=== PATIENT | male | born 1995 | race African-American/Black ===

== ENCOUNTER 2021-06-08 07:06 | Emergency (ER) | payer OTHER ==
[~2021-06-08] VITALS: Ht 188 cm; Wt 90.9 kg
[2021-06-08 07:23] VITALS: BP 126/70
[2021-06-08] MEDS ORDERED: PERTUSS(ACELL),DIPH,TET VAC/PF 0.5 ML SYRINGE IM. ONE (08:00)
== END 2021-06-08 08:17 | disposition home or self-care (01) ==
LOC: EMS 07:06
DX: B07.0 Plantar wart (principal)
CPT/HCPCS: 90471; 90715; 99283

== ENCOUNTER 2022-11-28 06:32 | Inpatient (IN) | payer MEDICAID, OTHER ==
[~2022-11-28] VITALS: Ht 200.7 cm; Wt 95.2 kg
[2022-11-28 08:29] LABS: BASOPHILS % (AUTO) 0.3 % (0.0-2.0); EOSINOPHILS % (AUTO) 0 % (1.0-6.0); HEMATOCRIT 39.1 % (41-53); HEMOGLOBIN 12.9 g/dL (13.5-17.5); LYMPHOCYTES # (AUTO) 0.7 K/uL (1.0-4.8); LYMPHOCYTES % (AUTO) 7.6 % (22.0-44.0); MEAN CORPUSCULAR HEMOGLOBIN 29.1 pg (26.0-34.0); MEAN CORPUSCULAR VOLUME 88 fL (80-100); MONOCYTES # (AUTO) 0.5 K/uL (0.1-1.0); MONOCYTES % (AUTO) 5.4 % (2.0-9.0); NEUTROPHILS # (AUTO) 7.7 K/uL (1.8-7.7); PLATELET COUNT (AUTO) 235 K/uL (150-450); RED BLOOD CELL COUNT(AUTO) 4.44 MIL/uL (4.50-5.90); RED CELL DISTRIBUTION WIDTH 14.1 % (11.5-14.5); WHITE BLOOD COUNT (AUTO) 8.9 K/uL (4.5-11.0)
[2022-11-28 08:30] LABS: NEUTROPHILS % (AUTO) 86.7 % (40.0-70.0)
[2022-11-28 08:39] LABS: ANION GAP 11 mmol/L (8-16); CALCIUM, TOTAL 9.4 mg/dL (8.8-10.5); CARBON DIOXIDE 26 mmol/L (22-29); CHLORIDE 101 mmol/L (98-107); CREATININE 1.26 mg/dL (0.60-1.30); GLOMERULAR FILTR. RATE CALC > 60 mL/min (>60); GLUCOSE,RANDOM 113 mg/dL (70-110); POTASSIUM 3.9 mmol/L (3.5-5.1); SODIUM SERUM 138 mmol/L (136-145); UREA NITROGEN, BLOOD 16 mg/dL (7-18)
[2022-11-28 08:44] LABS: ALANINE AMINOTRANSFERASE 21 U/L (12-78); ALBUMIN 4.2 g/dL (3.4-5.0); ALKALINE PHOSPHATASE 60 U/L (46-116); ASPARTATE AMINOTRANSFERASE 37 U/L (15-37); BILIRUBIN,TOTAL 0.3 mg/dL (0.1-1.0)
[2022-11-28 08:53] LABS: ALCOHOL, BLOOD (SERUM) < 3 mg/dL (0-10)
[2022-11-28] MEDS ORDERED: ZOLPIDEM TARTRATE 10 MG TABLET PO PRN (09:30)
[2022-11-28 09:43] LABS: COVID AG,FIA SOURCE NASAL SWAB
[2022-11-28 10:00] LABS: SARS-COV2 (COVID) ANTIGEN,FIA Negative (Negative)
[2022-11-28] MEDS: LORazepam 2 MG TABLET PO PRN (10:38)
[2022-11-28] MEDS: HALOPERIDOL 5 MG TABLET PO PRN (10:38)
[2022-11-28 11:56] LABS: APPEARANCE,URINE CLEAR (CLEAR); BILIRUBIN,URINE NEGATIVE (NEGATIVE); COLOR,URINE LIGHT YELLOW (YELLOW); GLUCOSE, URINE (UA) NEGATIVE (NEGATIVE); KETONES,URINE NEGATIVE (NEGATIVE); LEUKOCYTE ESTERASE ,URINE NEGATIVE (NEGATIVE); NITRATE,URINE NEGATIVE (NEGATIVE); OCCULT BLOOD,URINE MODERATE (NEGATIVE); PROTEIN,URINE 30-70 mg/dL (NEGATIVE); SPECIFIC GRAVITIY, URINE 1.027 (1.003-1.030); UROBILINOGEN,URINE <=1.0 mg/dL (<=1.0)
[2022-11-28 12:06] LABS: ALCOHOL, URINE DRUG SCREEN NEGATIVE (NEGATIVE); AMPHET/METH SCREEN,URINE POSITIVE (NEGATIVE); BARBITURATE SCREEN, URINE NEGATIVE (NEGATIVE); BENZODIAZEPINES SCREEN,URINE NEGATIVE (NEGATIVE); CANNABINOID SCREEN,URINE POSITIVE (NEGATIVE); COCAINE SCREEN,URINE NEGATIVE (NEGATIVE); METHADONE SCREEN, URINE NEGATIVE (NEGATIVE); OPIATE SCREEN,URINE NEGATIVE (NEGATIVE); PHENCYCLIDINE SCREEN,URINE NEGATIVE (NEGATIVE)
[2022-11-28 12:09] LABS: BACTERIA,URINE None Seen /HPF (None Seen); SQUAMOUS EPITHELIAL CELL,UR Few /LPF (None Seen); WBC,URINE None Seen /HPF (0-5)
[2022-11-28 15:18] VITALS: BP 144/91; PULSE 104; RESP 18; TEMP 98.9; O2SAT 99
[2022-11-28 20:00] VITALS: BP 148/93; PULSE 97; RESP 18; TEMP 98.1; O2SAT 98
[2022-11-28] MEDS ORDERED: PETROLATUM,WHITE 28 GM JELLY TP PRN (21:15)
[2022-11-28] MEDS ORDERED: DOCUSATE SODIUM 100 MG CAPSULE PO PRN (21:15)
[2022-11-28] MEDS ORDERED: LOPERAMIDE HCL 2 MG CAPSULE PO PRN (21:15)
[2022-11-28] MEDS ORDERED: GuaiFENesin/D-METHORPHAN [SUGAR-FREE] 200-20MG/10 ML SYRUP UDCUP PO PRN (21:15)
[2022-11-28] MEDS ORDERED: CloNIDine HCL 0.1 MG TABLET PO PRN (21:15)
[2022-11-28] MEDS ORDERED: ACETAMINOPHEN 325 MG TABLET PO PRN (21:15)
[2022-11-28] MEDS ORDERED: IBUPROFEN 400 MG TABLET PO PRN (21:15)
[2022-11-28] MEDS ORDERED: ALBUTEROL SULFATE HFA 90 MCG/PUFF 8 GM INHALER IH PRN (21:15)
[2022-11-28] MEDS ORDERED: MAGNESIUM HYDROXIDE SUSPENSION 30 ML UDCUP PO PRN (21:15)
[2022-11-28] MEDS ORDERED: ONDANSETRON HCL 4 MG TABLET PO PRN (21:15)
[2022-11-28] MEDS: NICOTINE 14 MG/24 HOUR PATCH TD PRN (22:01)
[2022-11-29] MEDS: MAG HYDROX/AL HYDROX/SIMETH ES 30 ML SUSPENSION UDCUP PO PRN (00:51)
[2022-11-29 07:28] LABS: BASOPHILS % (AUTO) 0.3 % (0.0-2.0); EOSINOPHILS % (AUTO) 0 % (1.0-6.0); HEMATOCRIT 40.5 % (41-53); HEMOGLOBIN 13.8 g/dL (13.5-17.5); LYMPHOCYTES # (AUTO) 0.7 K/uL (1.0-4.8); LYMPHOCYTES % (AUTO) 8.7 % (22.0-44.0); MEAN CORPUSCULAR HEMOGLOBIN 29.9 pg (26.0-34.0); MEAN CORPUSCULAR VOLUME 88 fL (80-100); MONOCYTES # (AUTO) 0.4 K/uL (0.1-1.0); MONOCYTES % (AUTO) 5.2 % (2.0-9.0); NEUTROPHILS # (AUTO) 6.9 K/uL (1.8-7.7); PLATELET COUNT (AUTO) 235 K/uL (150-450); RED BLOOD CELL COUNT(AUTO) 4.61 MIL/uL (4.50-5.90); RED CELL DISTRIBUTION WIDTH 13.8 % (11.5-14.5)
[2022-11-29 07:29] LABS: NEUTROPHILS % (AUTO) 85.8 % (40.0-70.0)
[2022-11-29 07:36] LABS: HEMOGLOBIN A1C 5.4 % (3.8-5.6)
[2022-11-29 07:49] LABS: ALANINE AMINOTRANSFERASE 40 U/L (12-78); ALBUMIN 4.6 g/dL (3.4-5.0); ALKALINE PHOSPHATASE 68 U/L (46-116); ANION GAP 2 mmol/L (8-16); ASPARTATE AMINOTRANSFERASE 153 U/L (15-37); BILIRUBIN,TOTAL 0.6 mg/dL (0.1-1.0); CALCIUM, TOTAL 9.6 mg/dL (8.8-10.5); CARBON DIOXIDE 31 mmol/L (22-29); CHLORIDE 101 mmol/L (98-107); CREATININE 1.14 mg/dL (0.60-1.30); GLOMERULAR FILTR. RATE CALC > 60 mL/min (>60); GLUCOSE,RANDOM 114 mg/dL (70-110); POTASSIUM 3.5 mmol/L (3.5-5.1); SODIUM SERUM 134 mmol/L (136-145); THYROID STIMULATING HORMONE 2.56 uIU/mL (0.36-3.74); TOTAL PROTEIN, SERUM 8.7 g/dL (6.4-8.2); UREA NITROGEN, BLOOD 18 mg/dL (7-18)
[2022-11-29 07:55] LABS: RBC MORPHOLOGY COMMENT NORMAL RBC MORPH
[2022-11-29 09:08] LABS: CHOL/HDL RATIO 1.8 (4.2-7.3); CHOLESTEROL 130 mg/dL (131-200); HDL CHOLESTEROL 71 mg/dL (40-60); LDL CHOL (CALC.) 53 mg/dL (0-130); TRIGLYCERIDES 32 mg/dL (15-150)
[2022-11-29] MEDS: LORazepam 2 MG TABLET PO PRN ×2 (09:36→13:40)
[2022-11-29] MEDS: NICOTINE 14 MG/24 HOUR PATCH TD PRN (09:36)
[2022-11-29] MEDS: HALOPERIDOL 5 MG TABLET PO PRN ×2 (09:36→13:40)
[2022-11-29 10:24] VITALS: BP 145/85; PULSE 96; RESP 18; TEMP 97.4; O2SAT 98
[2022-11-29] MEDS: RisperiDONE 2 MG TABLET PO SCH (16:51)
[2022-11-29 20:00] VITALS: TEMP 98
[2022-11-30] MEDS: HALOPERIDOL 5 MG TABLET PO PRN ×3 (00:09→22:24)
[2022-11-30] MEDS: LORazepam 2 MG TABLET PO PRN ×3 (00:09→22:24)
[2022-11-30 00:44] VITALS: BP 133/90; PULSE 90; RESP 18; TEMP 96.3
[2022-11-30] MEDS: NICOTINE 14 MG/24 HOUR PATCH TD PRN (08:17)
[2022-11-30] MEDS: RisperiDONE 2 MG TABLET PO SCH ×2 (08:17→16:26)
[2022-11-30 11:45] VITALS: BP 118/86; PULSE 110; RESP 19; TEMP 97.8; O2SAT 99
[2022-11-30] MEDS: MAG HYDROX/AL HYDROX/SIMETH ES 30 ML SUSPENSION UDCUP PO PRN (18:04)
[2022-11-30 21:05] VITALS: RESP 19
[2022-12-01] MEDS: RisperiDONE 2 MG TABLET PO SCH (08:32)
[2022-12-01] MEDS: HALOPERIDOL 5 MG TABLET PO PRN (09:19)
[2022-12-01] MEDS: LORazepam 2 MG TABLET PO PRN (09:19)
[2022-12-01] MEDS: NICOTINE 14 MG/24 HOUR PATCH TD PRN (09:23)
[2022-12-01 11:53] VITALS: BP 120/77; PULSE 99; RESP 18; TEMP 96.7; O2SAT 99
[2022-12-01] MEDS ORDERED: RISP2TAB86 PO (12:33)
== END 2022-12-01 17:01 | disposition home or self-care (01) | DRG 751 ==
LOC: EMS 06:34 → 3EI 11:22
PROVIDERS: ADMIT Psychiatry & Neurology Child & Adolescent Psychiatry; ATTEND Psychiatry & Neurology Child & Adolescent Psychiatry
DX: F29 Unspecified psychosis not due to a substance or known physiological condition (principal); E87.1 Hypo-osmolality and hyponatremia; R45.851 Suicidal ideations; D64.9 Anemia, unspecified; R74.01 Elevation of levels of liver transaminase levels; F15.10 Other stimulant abuse, uncomplicated; F12.10 Cannabis abuse, uncomplicated; Z20.822 Contact with and (suspected) exposure to COVID-19
CPT/HCPCS: 80053; 80061; 80307; 81001; 83036; 84443; 85025; 99285; G0480

== ENCOUNTER 2022-12-06 12:44 | Inpatient (IN) | payer MEDICAID, OTHER ==
[~2022-12-06] VITALS: Ht 193 cm; Wt 91.4 kg
[~2022-12-06 12:44] MED LIST: RISP2TAB86 PO
[2022-12-06 13:14] LABS: BASOPHILS % (AUTO) 0.4 % (0.0-2.0); HEMATOCRIT 38.8 % (41-53); HEMOGLOBIN 13.2 g/dL (13.5-17.5); LYMPHOCYTES # (AUTO) 1.1 K/uL (1.0-4.8); LYMPHOCYTES % (AUTO) 25.8 % (22.0-44.0); MEAN CORPUSCULAR HEMOGLOBIN 29.8 pg (26.0-34.0); MEAN CORPUSCULAR VOLUME 88 fL (80-100); MONOCYTES # (AUTO) 0.5 K/uL (0.1-1.0); MONOCYTES % (AUTO) 11.1 % (2.0-9.0); NEUTROPHILS # (AUTO) 2.4 K/uL (1.8-7.7); NEUTROPHILS % (AUTO) 58.7 % (40.0-70.0); PLATELET COUNT (AUTO) 252 K/uL (150-450); RED BLOOD CELL COUNT(AUTO) 4.43 MIL/uL (4.50-5.90); RED CELL DISTRIBUTION WIDTH 13.7 % (11.5-14.5); WHITE BLOOD COUNT (AUTO) 4.1 K/uL (4.5-11.0)
[2022-12-06 13:18] LABS: COVID AG,FIA SOURCE NASAL SWAB
[2022-12-06] MEDS: OLANZapine 5 MG TABLET PO ONE ×2 (13:18→13:23)
[2022-12-06 13:24] LABS: ANION GAP 9 mmol/L (8-16); CALCIUM, TOTAL 9.4 mg/dL (8.8-10.5); CARBON DIOXIDE 25 mmol/L (22-29); CHLORIDE 100 mmol/L (98-107); CREATININE 1.13 mg/dL (0.60-1.30); GLOMERULAR FILTR. RATE CALC > 60 mL/min (>60); GLUCOSE,RANDOM 81 mg/dL (70-110); POTASSIUM 3.5 mmol/L (3.5-5.1); SODIUM SERUM 134 mmol/L (136-145); UREA NITROGEN, BLOOD 20 mg/dL (7-18)
[2022-12-06 13:26] LABS: ALCOHOL, BLOOD (SERUM) < 3 mg/dL (0-10)
[2022-12-06] MEDS ORDERED: DiphenhydrAMINE HCL 50 MG/ML VIAL ONE (13:26)
[2022-12-06] MEDS ORDERED: HALOPERIDOL LACTATE 5 MG/ML VIAL ONE (13:26)
[2022-12-06] MEDS ORDERED: LORazepam 2 MG/ML VIAL ONE (13:26)
[2022-12-06 13:30] LABS: ALANINE AMINOTRANSFERASE 34 U/L (12-78); ALBUMIN 3.9 g/dL (3.4-5.0); ALKALINE PHOSPHATASE 70 U/L (46-116); ASPARTATE AMINOTRANSFERASE 42 U/L (15-37); BILIRUBIN,TOTAL 0.6 mg/dL (0.1-1.0); TOTAL PROTEIN, SERUM 7.6 g/dL (6.4-8.2)
[2022-12-06] MEDS ORDERED: DiphenhydrAMINE HCL 50 MG/ML VIAL IM ONE (13:30)
[2022-12-06] MEDS ORDERED: LORazepam 2 MG TABLET PO PRN (13:30)
[2022-12-06] MEDS ORDERED: HALOPERIDOL LACTATE 5 MG/ML VIAL IM ONE (13:30)
[2022-12-06] MEDS ORDERED: QUEtiapine FUMARATE 100 MG TABLET PO PRN (13:30)
[2022-12-06] MEDS ORDERED: LORazepam 2 MG/ML VIAL IM ONE (13:30)
[2022-12-06] MEDS ORDERED: ZOLPIDEM TARTRATE 10 MG TABLET PO PRN (13:30)
[2022-12-06 13:36] LABS: SARS-COV2 (COVID) ANTIGEN,FIA Negative (Negative)
[2022-12-06 18:06] LABS: PH,URINE DRUG SCREEN 5.5 (5.0-8.0)
[2022-12-06 18:07] LABS: APPEARANCE,URINE CLEAR (CLEAR); BILIRUBIN,URINE NEGATIVE (NEGATIVE); COLOR,URINE YELLOW (YELLOW); GLUCOSE, URINE (UA) NEGATIVE (NEGATIVE); LEUKOCYTE ESTERASE ,URINE NEGATIVE (NEGATIVE); NITRATE,URINE NEGATIVE (NEGATIVE); OCCULT BLOOD,URINE NEGATIVE (NEGATIVE); PH,URINE 5.5 (5.0-8.0); PROTEIN,URINE TRACE mg/dL (NEGATIVE); SPECIFIC GRAVITIY, URINE 1.035 (1.003-1.030); UROBILINOGEN,URINE <=1.0 mg/dL (<=1.0)
[2022-12-06 18:13] LABS: ALCOHOL, URINE DRUG SCREEN NEGATIVE (NEGATIVE); AMPHET/METH SCREEN,URINE POSITIVE (NEGATIVE); BARBITURATE SCREEN, URINE NEGATIVE (NEGATIVE); BENZODIAZEPINES SCREEN,URINE NEGATIVE (NEGATIVE); CANNABINOID SCREEN,URINE POSITIVE (NEGATIVE); COCAINE SCREEN,URINE NEGATIVE (NEGATIVE); METHADONE SCREEN, URINE NEGATIVE (NEGATIVE); OPIATE SCREEN,URINE NEGATIVE (NEGATIVE); PHENCYCLIDINE SCREEN,URINE NEGATIVE (NEGATIVE)
[2022-12-07 01:00] VITALS: BP 118/75; PULSE 80; RESP 18; TEMP 96.7; O2SAT 100
[2022-12-07] MEDS ORDERED: INFLUENZA VIRUS VACCINE QVS 2023-24 (6MO+)/PF 60 MCG/0.5 ML SYRINGE IM. ONE (03:45)
[2022-12-07] MEDS ORDERED: NICOTINE 14 MG/24 HOUR PATCH TD PRN ×2 (06:45→15:45)
[2022-12-07 09:44] VITALS: BP 100/59; PULSE 95; RESP 19; TEMP 97.5; O2SAT 96
[2022-12-07] MEDS: RisperiDONE 2 MG TABLET PO SCH ×2 (12:20→16:21)
[2022-12-07] MEDS ORDERED: IBUPROFEN 400 MG TABLET PO PRN (15:45)
[2022-12-07] MEDS ORDERED: MAGNESIUM HYDROXIDE SUSPENSION 30 ML UDCUP PO PRN (15:45)
[2022-12-07] MEDS ORDERED: DOCUSATE SODIUM 100 MG CAPSULE PO PRN (15:45)
[2022-12-07] MEDS ORDERED: GuaiFENesin/D-METHORPHAN [SUGAR-FREE] 200-20MG/10 ML SYRUP UDCUP PO PRN (15:45)
[2022-12-07] MEDS ORDERED: CloNIDine HCL 0.1 MG TABLET PO PRN (15:45)
[2022-12-07] MEDS ORDERED: ALBUTEROL SULFATE HFA 90 MCG/PUFF 8 GM INHALER IH PRN (15:45)
[2022-12-07] MEDS ORDERED: ACETAMINOPHEN 325 MG TABLET PO PRN (15:45)
[2022-12-07] MEDS ORDERED: LOPERAMIDE HCL 2 MG CAPSULE PO PRN (15:45)
[2022-12-07] MEDS ORDERED: PETROLATUM,WHITE 28 GM JELLY TP PRN (15:45)
[2022-12-07] MEDS ORDERED: ONDANSETRON HCL 4 MG TABLET PO PRN (15:45)
[2022-12-07] MEDS ORDERED: MAG HYDROX/ALUMINUM HYD/SIMETH ES 30 ML SUSPENSION UDCUP PO PRN (15:45)
[2022-12-07 20:06] VITALS: BP 112/61; PULSE 104; RESP 19; TEMP 98.2; O2SAT 97
[2022-12-08 07:36] LABS: HEMOGLOBIN A1C 5.4 % (3.8-5.6)
[2022-12-08 07:40] LABS: CHOL/HDL RATIO 1.8 (4.2-7.3); THYROID STIMULATING HORMONE 0.45 uIU/mL (0.36-3.74)
[2022-12-08] MEDS: RisperiDONE 2 MG TABLET PO SCH ×2 (08:20→16:15)
[2022-12-08 08:32] VITALS: BP 110/67; PULSE 77; RESP 16; TEMP 98.3; O2SAT 98
== END 2022-12-08 16:50 | disposition left against medical advice (07) | DRG 750 ==
LOC: EMS 12:44 → B2X 12-07 00:08
PROVIDERS: ADMIT Psychiatry & Neurology Psychiatry; ATTEND Psychiatry & Neurology Child & Adolescent Psychiatry
DX: F20.9 Schizophrenia, unspecified (principal); E87.1 Hypo-osmolality and hyponatremia; D72.819 Decreased white blood cell count, unspecified; F15.10 Other stimulant abuse, uncomplicated; Z20.822 Contact with and (suspected) exposure to COVID-19; Z53.21 Procedure and treatment not carried out due to patient leaving prior to being seen by health care provider; D64.9 Anemia, unspecified; Z79.899 Other long term (current) drug therapy
CPT/HCPCS: 80053; 80061; 80307; 81003; 83036; 84443; 85025; 87081; 90686; 99285; G0480; J1200; J1630; J2060